=== PATIENT | female | born 1970 | race Caucasian/White ===

== ENCOUNTER → 2021-03-02 09:43 | Outpatient (CLI) | payer MEDICARE, MEDICAID, SELFPAY ==
--- NOTE | 2021-02-27 14:15 | LES_PTH ---
PATIENT: JESSICA TAYLOR LOC: [facility] U#:[id number] AGE/SX: 55/F ROOM: RE03/02/[address]: Dr. Yakelin Escobar MD : [id number] BED: DIS: SPEC #: [id number] RECD: 02/27/21 17:59 STATUS: JULIAN WALKER #: [id number] SEB: 02/27/21 14:[address]: Yakelin Escobar DEPT: SURGICAL PATHOLOGY RECD BY: Ni Shannon ENTERED: 03/02/21 11:09 SP TYPE: Lesion OTHR DR: Dr. Ramy Boo MD Tissues: Skin of face, NOS Procedures: Surgery Specimen Level IV HEADER OPERATION: Punch biopsy PRE-OP DIAGNOSIS: Rule out AK vs malignancy TISSUE SUBMITTED: Right cheek MICROSCOPIC DIAGNOSIS Skin lesion of right cheek, punch biopsy: Suggestive of verrucoid keratosis. Focal parakeratosis and minimal dermal chronic inflammation. No evidence of malignancy. AM:pierce 03/04/2021 COMMENT Case has been reviewed in consultation with Dr. Ly who concurs with the above diagnosis. IDC:SJ MICROSCOPIC DESCRIPTION Slides are reviewed. GROSS DESCRIPTION Received is one container labeled with the patient's name and not further designated. The specimen consists of one irregular fragment of light schroeder soft tissue that measures 0.2 x 0.2 x 0.1 cm. The specimen is totally submitted in one cassette. / AM:pierce 03/02/21 TC:5 CPT: 58817
== END ==
PROVIDERS: PCP Family Medicine; Referring Provider Family Medicine; Visit Provider Family Medicine
DX: L98.9 Disorder of the skin and subcutaneous tissue, unspecified (principal)
CPT/HCPCS: 88305

== ENCOUNTER → 2021-03-10 | Outpatient (CLI) | payer MEDICARE, MEDICAID, SELFPAY ==
[2021-03-14 08:09] LABS: Age Gdln ACOG Testing 30-65 (.)
[2021-03-16 12:29] LABS: HPV APTIMA, High Risk Negative (Negative)
[2021-03-16 12:52] LABS: HPV Reflexed? YES, CHARGE PATIENT
== END | disposition home or self-care (01) ==
LOC: LABSPEC 15:22
PROVIDERS: PCP Family Medicine; Referring Provider Family Medicine; Visit Provider Family Medicine
DX: Z12.4 Encounter for screening for malignant neoplasm of cervix (principal)
CPT/HCPCS: 87624; 88175; G0145

== ENCOUNTER → 2024-08-09 | Outpatient (CLI) | payer MEDICARE, SELFPAY ==
--- NOTE | 2024-08-09 11:55 | BI_ITS ---
MAMMOGRAPHY - BILATERAL SCREENING REASON FOR EXAM: Female, 54 years old. Routine annual screening examination. PERTINENT HISTORY: Grandmother with breast cancer. TECHNIQUE: Digital bilateral breast carlee (3D mammographic acquisition) in the CC and MLO projections. 2-D mediolateral oblique (MLO) and craniocaudad (CC) views of both breasts were obtained. CAD: Full Field Digital Mammography with Computer Added Detection was performed. COMPARISON: Comparison is made with prior outside examination dated September 21, 2016. FINDINGS: Breast Composition: There are scattered areas of fibroglandular density. There are no dominant masses or suspicious calcifications. Stable small benign-appearing bilateral axillary lymph nodes. No other significant abnormalities are identified. There has been no significant change since the prior study. BI/SCRN MAMM (CAD)W/CARLEE BILAT IMPRESSION: Stable bilateral screening mammogram. Yearly follow-up mammogram recommended. (A) ASSESSMENT CATEGORY: BIRADS Category 2: Benign. A letter regarding these results will be sent to the patient by the facility within 30 days. Approximately 10% of breast cancers are not detected by mammography. A normal mammogram should not delay biopsy of a clinically suspicious abnormality. [id number] Electronically Signed: Jovan Palma MD at 13:01 EDT ,
== END | disposition home or self-care (01) ==
LOC: OPBI 11:54
PROVIDERS: PCP Family Medicine; Referring Provider Family Medicine; Visit Provider Family Medicine
DX: Z12.31 Encounter for screening mammogram for malignant neoplasm of breast (principal); Z80.3 Family history of malignant neoplasm of breast
CPT/HCPCS: 77063; 77067

== ENCOUNTER → 2025-08-12 | Outpatient (CLI) | payer MEDICARE, SELFPAY ==
--- NOTE | 2025-08-12 12:37 | BI_ITS ---
EXAM: SCRN MAMM (CAD)W/CARLEE BILAT DATE: 08/12/2025 CLINICAL HISTORY: F, Age 55 y/o , SCREENING TECHNIQUE: Procedure Code: [id number] Modality: MG Procedure: SCRN MAMM (CAD)W/CARLEE BILAT COMPARISON: Prior exam(s) dated 08/09/2024. FINDINGS: TISSUE DENSITY: The breasts are almost entirely fatty. Bilateral Breast Mammographic Findings: A 3 mm nodular masslike density is seen in the retroareolar region, middle 3rd aspect of the right breast. This is best visualized on the carlee images. Further workup is indicated. Stable focal fibroglandular densities and nodular densities are seen elsewhere in the right breast. Benign-appearing round microcalcifications are seen. Stable partially obscured isodense masses are seen in the left breast. Stable nodular densities are seen in the left breast. No significant masses, calcifications or other abnormalities are identified. Benign-appearing round microcalcifications are seen. BI/SCRN MAMM (CAD)W/CARLEE BILAT IMPRESSION: A 3 mm nodular masslike density is seen in the retroareolar region, middle 3rd aspect of the right breast. This is best visualized on the carlee images. Further workup is indicated. Patient should return for an LM view of the right breast as well as spot compre ssion CC and spot compression MLO view of the right breast nodular masslike density. An ultrasound may also be needed. OVERALL FINAL ASSESSMENT BI-RADS 0: INCOMPLETE - NEED ADDITIONAL IMAGING EVALUATION. RECOMMENDATION: Additional Views obtained/call backs Additional Recommendation none A letter with findings and recommendations will be mailed to the patient. Reading Location: [id number]
== END | disposition home or self-care (01) ==
LOC: OPBI 12:35
PROVIDERS: PCP Family Medicine; Referring Provider Family Medicine; Visit Provider Family Medicine
DX: Z12.31 Encounter for screening mammogram for malignant neoplasm of breast (principal)
CPT/HCPCS: 77063; 77067

== ENCOUNTER → 2025-08-16 | Outpatient (CLI) | payer MEDICARE, SELFPAY ==
--- NOTE | 2025-08-16 12:58 | BI_ITS ---
EXAM: DIAG MAMM W/CAD, UNILAT; BREAST LIMITED UNILATERAL; RT BRST UNILAT CARLEE ADD-ON 08/16/2025 CLINICAL HISTORY: F, Age 55 y/o , ABD MAMM R BREAST; ABD MAMM TECHNIQUE: Procedure Code: BIDMWCADU; USBRSTLIMIT; BIRTUNITOMO Modality: MG; US Procedure: DIAG MAMM W/CAD, UNILAT; BREAST LIMITED UNILATERAL; RT BRST UNILAT CARLEE ADD-ON. COMPARISON: Prior exam(s) dated 08/12/2025, 08/09/2024. FINDINGS: MAMMOGRAM: TISSUE DENSITY: There are scattered areas of fibroglandular density. Unilateral Right Breast Mammographic Findings: Follow-up exam performed for the mass in the right breast seen on examination of 08/12/2025. On the present examination, the mass in the retroareolar right breast persist. This has not significantly changed when compared to prior exam of 08/09/2024. ULTRASOUND: Ultrasound performed of the retroareolar right breast demonstrates a small circumscribed oval mass with a probable fatty randolph measuring 0.4 x 0.4 x 0.2 cm cyst may represent a tiny intramammary lymph node. This correlates with the mammographic finding. BI/Rt Brst Unilat Carlee Add-On IMPRESSION: Mass in the retroareolar right breast likely represents a tiny intramammary lym ph node. OVERALL FINAL ASSESSMENT BI-RADS 2: BENIGN RECOMMENDATION: Routine annual follow-up in 1 Year Additional Recommendation none A letter with findings and recommendations will be mailed to the patient. Reading Location: [id number]
--- NOTE | 2025-08-16 12:58 | BI_ITS ---
EXAM: DIAG MAMM W/CAD, UNILAT; BREAST LIMITED UNILATERAL; RT BRST UNILAT CARLEE ADD-ON 08/16/2025 CLINICAL HISTORY: F, Age 55 y/o , ABD MAMM R BREAST; ABD MAMM TECHNIQUE: Procedure Code: BIDMWCADU; USBRSTLIMIT; BIRTUNITOMO Modality: MG; US Procedure: DIAG MAMM W/CAD, UNILAT; BREAST LIMITED UNILATERAL; RT BRST UNILAT CARLEE ADD-ON. COMPARISON: Prior exam(s) dated 08/12/2025, 08/09/2024. FINDINGS: MAMMOGRAM: TISSUE DENSITY: There are scattered areas of fibroglandular density. Unilateral Right Breast Mammographic Findings: Follow-up exam performed for the mass in the right breast seen on examination of 08/12/2025. On the present examination, the mass in the retroareolar right breast persist. This has not significantly changed when compared to prior exam of 08/09/2024. ULTRASOUND: Ultrasound performed of the retroareolar right breast demonstrates a small circumscribed oval mass with a probable fatty randolph measuring 0.4 x 0.4 x 0.2 cm cyst may represent a tiny intramammary lymph node. This correlates with the mammographic finding. BI/DIAG MAMM W/CAD, UNILAT IMPRESSION: Mass in the retroareolar right breast likely represents a tiny intramammary lym ph node. OVERALL FINAL ASSESSMENT BI-RADS 2: BENIGN RECOMMENDATION: Routine annual follow-up in 1 Year Additional Recommendation none A letter with findings and recommendations will be mailed to the patient. Reading Location: [id number]
--- OUTSIDE RECORDS SUMMARY | 2025-08-16 13:12 | XMS RPT_ITS | CCD ---
Author Organization [facility] Care Team Providers Care Ux Engineer Name Role Phone KEIVN NIETO Admitting Unavailable EMILIA, KEVIN T Attending Unavailable EMILIA, KEVIN T Primary Care Unavailable EMILIA, KEVIN T Admitting Unavailable EMILIA, KEVIN T Attending Unavailable EMILIA, KEVIN T Primary Care Unavailable YAKELIN ESCOBAR Consulting Unavailable PROVIDER, UNKNOWN Consulting Unavailable PROVIDER, UNKNOWN Consulting Unavailable EMILIA, KEVIN T Admitting Unavailable EMILIA, KEVIN T Attending Unavailable EMILIA, KEVIN T Primary Care Unavailable EMILIA, KEVIN T Admitting Unavailable EMILIA, KEVIN T Attending Unavailable EMILIA, KEVIN T Primary Care Unavailable YAKELIN ESCOBAR Consulting Unavailable PROVIDER, UNKNOWN Consulting Unavailable PROVIDER, UNKNOWN Consulting Unavailable EMILIA, KEVIN T Admitting Unavailable EMILIA, KVEIN T Attending Unavailable EMILIA, KEVIN T Primary Care Unavailable YAKELIN ESCOBAR Consulting Unavailable PROVIDER, UNKNOWN Consulting Unavailable PROVIDER, UNKNOWN Consulting Unavailable GREGOR HERNANDEZ~[phone], GREGOR KATZ Admitting U neena BUNDY MD~[id number], GREGOR KATZ Attending U neena ESCOBAR MD~[id number], FEDERICO [place]lin Primary Ca re Unavailable YAKELIN ESCOBAR MD Consulting Unavailable YAKELIN ESCOBAR MD Consulting Unavailable GIANNA BUNDY MD Consulting Unavailable GIANNA BUNDY MD Consulting Unavailable WESLEY RENEE Admitting Unavailable WESLEY RENEE Attending Unavailable FEDERICO HERNANDEZ~[phone], FEDERICO [place] Primary Ca re Unavailable WESLEY RENEE Consulting Unavailable WESLEY RENEE Consulting Unavailable YAKELIN ESCOBAR MD Consulting Unavailable YAKELIN ESCOBAR MD Consulting Unavailable AKILA HERNANDEZ~[id number], AKILA Crenshaw Admitting Unavailable AKILA HERNANDEZ~[id number], AKILA Crenshaw Attending Unavailable FEDERICO HERNANDEZ~[id number], FEDERICO [place] Primary Ca re Unavailable RADHA SCRUGGS APRN Consulting Unavailable RADHA SCRUGGS APRN Consulting Unavailable YAKELIN ESCOBAR MD Consulting Unavailable YAKELIN ESCOBAR MD Consulting Unavailable DAKOTA WILBURN MD Consulting Unavailable DAKOTA WILBURN MD Consulting Unavailable Yakelin Escobar Referring Unavailable Yakelin Escobar Primary Care Unavailable Yakelin Escobar Attending Unavailable Yakelin Escobar Referring Unavailable Yakelin Escobar Primary Care Unavailable Yakelin Escobar Attending Unavailable Allergies Allergy Classification Reported Allergen(s) Allergy Type Date of Onset Reaction(s) Facility (1 source) nickel; Translations: [nickel] Drug Allergy [facility] Repository (1 source) tide soap; Translations: [tide soap] Propensity to adverse reactions (disorder) [facility] Repository (1 source) dial soap; Translations: [dial soap] Propensity to adverse reactions (disorder) [facility] Repository Problems Active Problems Problem Classification Problem Date Documented Da te Episodic/Chronic Abdominal pain (1 source) Epigastric pain; Translations: [Epigastric pain] Onset: 08-10-2024 Episodic Malaise and fatigue (1 source) Other fatigue; Translations: [OTHER FATIGUE] Onset: 06-18-2025 Episodic Nutritional deficiencies (3 sources) Vitamin D deficiency, unspecified; Translations: [VITAMIN D DEFICIENCY UNSPECIFIED] Onset: 06-14-2025 Chronic Other aftercare (1 source) Other assisted (current) drug therapy; Translations: [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] Onset: 06-18-2025 Episodic Other lower respiratory disease (1 source) Snoring; Translations: [SNORING] Onset: 06-14-2025 Episodic Other screening for suspected conditions (not mental disorders or infectious disease) (2 sources) Other abnormal and inconclusive findings on diagnostic imaging of breast; Translations: [Encounter for screening mammogram for malignant neoplasm of breast] Onset: 08-12-2025 Episodic Residual codes; unclassified (2 sources) Obstructive sleep apnea (adult) (pediatric); Translations: [OBSTRUCTIVE SLEEP APNEA] Onset: 06-10-2025 Chronic Residual codes; unclassified (1 source) Hypersomnia, unspecified; Translations: [HYPERSOMNIA UNSPECIFIED] Onset: 06-14-2025 Chronic Past or Other Problems Problem Classification Problem Date Documented Da te Episodic/Chronic Biliary tract disease (3 sources) Cholecystitis, unspecified; Translations: [Cholecystitis, unspecified] Onset: 02-10-2024 Episodic Other gastrointestinal disorders (3 sources) Change in bowel habit; Translations: [CHANGE IN BOWEL HABIT] Onset: 03-22-2025 Episodic Results Test Name Value Interpretation Reference Range Facility SCRN MAMM (CAD)W/CARLEE BILATo n 08-12-2025 SCRN MAMM (CAD)W/CARLEE BILAT [facility] Imaging Services [address], [place] [id number] SCRN MAMM (CAD)W/CARLEE BILAT MR#: [id number] Acct: [id number] Name: JESSICA TAYLOR Rep #: [id number] : 1970 F 55 From: Jud Hayes PCP: Dr. Yakelin Escobar MD Status: [facility] Study: SCRN MAMM (CAD)W/CARLEE BILAT Date of Exam: 07/31 01/22 Exam# [id number] Ordering Dr: Yakelin Escobar MD EXAM: SCRN MAMM (CAD)W/CARLEE BILAT DATE: 08/12/2025 CLINICAL HISTORY: F, Age 55 y/o , SCREENING TECHNIQUE: Procedure Code: BISMWCADBTOM Modality: MG Procedure: SCRN MAMM (CAD)W/CARLEE BILAT COMPARISON: Prior exam(s) dated 08/09/2024. FINDINGS: TISSUE DENSITY: The breasts are almost entirely fatty. Bilateral Breast Mammographic Findings: A 3 mm nodular masslike density is seen in the retroareolar region, middle 3rd aspect of the right breast. This is best visualized on the carlee images. Further workup is indicated. Stable focal fibroglandular densities and nodular densities are seen elsewhere in the right breast. Benign-appearing round microcalcifications are seen. Stable partially obscured isodense masses are seen in the left breast. Stable nodular densities are seen in the left breast. No significant masses, calcifications or other abnormalities are identified. Benign-appearing round microcalcifications are seen. BI/SCRN MAMM (CAD)W/CARLEE BILAT IMPRESSION: A 3 mm nodular masslike density is seen in the retroareolar region, middle 3rd aspect of the right breast. This is best visualized on the carlee images. Further workup is indicated. Patient should return for an LM view of the right breast as well as spot compression CC and spot compression MLO view of the right breast nodular masslike density. An ultrasound may also be needed. OVERALL FINAL ASSESSMENT BI-RADS 0: INCOMPLETE - NEED ADDITIONAL IMAGING EVALUATION. RECOMMENDATION: Additional Views obtained/call backs Additional Recommendation none A letter with findings and recommendations will be mailed to the patient. Reading Location: [id number] CC: Dr. Yakelin Escobar MD [employer] Sales: Signed Normal [facility] 25-hydroxyvitamin D [Mass/Vo l]on 06-14-2025 25-hydroxyvitamin D3 [Mass/Vol] 41.7 ng/mL Normal 30.0-100.0 [facility] Comment on above: Performed By: #### 6 2292-8, 26627-2, 95357-1 #### [facility] [address] [place] [address] Instrumental Musician - Josey RAI [id number] HVITD VITAMIN D INTERPRETATION VITAMIN D STATUS RANGE -- DEFICIENCY <20 ng/mL INSUFFICIENCY 20-30 ng/mL SUFFICIENCY 30-100 ng/mL TOXICITY >100 ng/mL Normal [facility] Comment on above: Performed By: #### 6 2292-8, 22055-8, 98486-0 #### [facility] [address] [place] [address] Instrumental Musician - Josey RAI [id number] CBC W Auto Differential pane l (Bld)on 06-14-2025 Basophils (Bld) [#/Vol] 0.07 10*3/uL Normal <=0.70 [facility] Comment on above: Performed By: #### 5 7021-8 #### [place] [address] [place] [address] Instrumental Musician - Josey Chua CLIA [id number] Basophils/100 WBC (Bld) 1.0 % Normal <=2.0 [facility] Comment on above: Performed By: #### 5 7021-8 #### [address] [place] [address] Instrumental Musician - Josey Chua CLIA [id number] Eosinophils (Bld) [#/Vol] 0.32 10*3/uL Normal <=0.70 [facility] Comment on above: Performed By: #### 5 7021-8 #### [address] [place] [address] Instrumental Musician - Josey Chua CLIA [id number] Eosinophils/100 WBC (Bld) 4.4 % Normal <=10.0 [facility] Comment on above: Performed By: #### 5 7021-8 #### [address] [place] [address] Instrumental Musician - Josey CAMERONIA [id number] Erythrocyte distribution width (RBC) [Entitic vol] 40.8 fL Normal 36.4-46.3 [facility] Comment on above: Performed By: #### 5 7021-8 #### [address] [place] [address] Instrumental Musician - Josey Chua CLIA [id number] Hematocrit (Bld) [Volume fraction] 39.3 % Normal 37.0-47.0 [facility] Comment on above: Performed By: #### 5 7021-8 #### [address] [place] [address] Instrumental Musician - Josey CAMERONIA [id number] Hemoglobin (Bld) [Mass/Vol] 13.5 g/dL Normal 12.0-16.0 [facility] Comment on above: Performed By: #### 5 7021-8 #### [facility] [address] [facility]. [place] [address] Instrumental Musician - Josey Chua CLIA [id number] Immature granulocytes (Bld) [#/Vol] 0.02 10*3/uL Normal <=0.10 [facility] Comment on above: Performed By: #### 5 7021-8 #### [address] [place] [address] Instrumental Musician - Josey Chua CLIA [id number] Immature granulocytes/100 WBC (Bld) 0.30 % Normal <=1.50 [facility] Comment on above: Performed By: #### 5 7021-8 #### [address] [place] [address] Instrumental Musician - Josey Chua CLIA [id number] Lymphocytes (Bld) [#/Vol] 2.31 10*3/uL Normal 1.20-3.40 [facility] Comment on above: Performed By: #### 5 7021-8 #### [address] [place] [address] Instrumental Musician - Josey Chua CLIA [id number] Lymphocytes/100 WBC (Bld) 32.0 % Normal 20.0-40.0 [facility] Comment on above: Performed By: #### 5 7021-8 #### [address] [place] [address] Instrumental Musician - Josey Chua CLIA [id number] MCH (RBC) [Entitic mass] 29.9 pg Normal 27.0-31.0 [facility] Comment on above: Performed By: #### 5 7021-8 #### [address] [place] [address] Instrumental Musician - Josey Chua CLIA [id number] MCHC (RBC) [Mass/Vol] 34.4 g/dL Normal 32.0-36.0 [facility] Comment on above: Performed By: #### 5 7021-8 #### [facility] [address] [place] [address] Instrumental Musician - Josey CAMERONIA [id number] MCV (RBC) [Entitic vol] 86.9 fL Normal 80.0-100.0 [facility] Comment on above: Performed By: #### 5 7021-8 #### [place] [address] [place] [address] Instrumental Musician - Josey Chua CLIA [id number] Monocytes (Bld) [#/Vol] 0.48 10*3/uL Normal 0.10-0.60 [facility] Comment on above: Performed By: #### 5 7021-8 #### [place] [address] [place] [address] Instrumental Musician - Josey Chua CLIA [id number] Monocytes/100 WBC (Bld) 6.7 % Normal <=8.0 [facility] Comment on above: Performed By: #### 5 7021-8 #### [place] [address] [place] [address] Instrumental Musician - Josey Chua CLIA [id number] Neutrophils (Bld) [#/Vol] 4.01 10*3/uL Normal 1.40-6.50 [facility] Comment on above: Performed By: #### 5 7021-8 #### [place] [address] [place] [address] Instrumental Musician - Josey Chua CLIA [id number] Neutrophils/100 WBC (Bld) 55.6 % Normal 50.0-70.0 [facility] Comment on above: Performed By: #### 5 7021-8 #### [address] [place] [address] Instrumental Musician - Josey Chua CLIA [id number] Nucleated RBC (Bld) [#/Vol] 0.00 10*3/uL Normal <=0.10 [facility] Comment on above: Performed By: #### 5 7021-8 #### [place] [address] [place] [address] Instrumental Musician - Josey RAI [id number] Platelet mean volume (Bld) [Entitic vol] 11.6 fL Normal 9.0-13.0 [facility] Comment on above: Performed By: #### 5 7021-8 #### [facility] [address] [place] [address] Instrumental Musician - Josey RAI [id number] Platelets (Bld) [#/Vol] 234 10*3/uL Normal 130-400 [facility] Comment on above: Performed By: #### 5 7021-8 #### [facility] [address] [place] [address] Instrumental Musician - Josey RAI [id number] RBC (Bld) [#/Vol] 4.52 10*6/uL Normal 4.00-6.30 [facility] Comment on above: Performed By: #### 5 7021-8 #### [place] [address] [place] [address] Instrumental Musician - Josey RAI [id number] WBC (Bld) [#/Vol] 7.21 10*3/uL Normal 4.80-10.80 [facility] Comment on above: Performed By: #### 5 7021-8 #### [place] [address] [place] [address] Instrumental Musician - Josey RAI [id number] Comprehensive metabolic 2000 panelon 06-14-2025 Albumin [Mass/Vol] 3.7 g/dL Normal 3.4-5.0 [facility] Comment on above: Performed By: #### 6 2292-8, 29649-3, 11417-3 #### [facility] [address] [place] [address] Instrumental Musician - Josey RAI [id number] ALP [Catalytic activity/Vol] 141 U/L High 50-136 [facility] Comment on above: Performed By: #### 6 2292-8, 36703-4, 67257-8 #### [facility] [address] [place] [address] Instrumental Musician - Josey Chua CLIA [id number] ALT [Catalytic activity/Vol] 32 U/L Normal 14-59 [facility] Comment on above: Performed By: #### 6 2292-8, 80170-5, 68797-5 #### [facility] [address] [place] [address] Instrumental Musician - Josey Chua CLIA [id number] Anion gap [Moles/Vol] 11.0 mmol/L Normal <=15.0 [facility] Comment on above: Performed By: #### 6 2292-8, 06056-0, 69376-6 #### [facility] [address] [place] [address] Instrumental Musician - Josey CAMERONIA [id number] AST [Catalytic activity/Vol] 22 U/L Normal 15-37 [facility] Comment on above: Performed By: #### 6 2292-8, 36038-6, 33209-7 #### [facility] [address] [place] [address] Instrumental Musician - Josey Chua CLIA [id number] Bilirubin [Mass/Vol] 0.6 mg/dL Normal 0.2-1.0 [facility] Comment on above: Performed By: #### 6 2292-8, 75980-2, 10970-5 #### [facility] [address] [place] [address] Instrumental Musician - Josey Chua CLIA [id number] Calcium [Mass/Vol] 9.4 mg/dL Normal 8.5-10.1 [facility] Comment on above: Performed By: #### 6 2292-8, 88827-8, 50452-6 #### [facility] [address] [place] [address] Instrumental Musician - Josey CAMERONIA [id number] Chloride [Moles/Vol] 107 mmol/L Normal 98-107 [facility] Comment on above: Performed By: #### 6 2292-8, 96823-3, 56578-7 #### [facility] [address] [place] [address] Instrumental Musician - Josey RAI [id number] CO2 [Moles/Vol] 27 mmol/L Normal 21-32 [facility] Comment on above: Performed By: #### 6 2292-8, 81148-7, 67449-8 #### [facility] [address] [place] [address] Instrumental Musician - Josey RAI [id number] Creatinine [Mass/Vol] 0.78 mg/dL Normal 0.51-0.95 [facility] Comment on above: Performed By: #### 6 2292-8, 21166-8, 88164-1 #### [facility] [address] [place] [address] Instrumental Musician - Josey RAI [id number] GFR/1.73 sq M.predicted MDRD (S/P/Bld) [Vol rate/Area] mL/min/{1.73_m2} Normal >=60 [facility] Comment on above: Performed By: #### 6 2292-8, 43243-4, 95915-9 #### [facility] [address] [place] [address] Instrumental Musician - Josey RAI [id number] Glucose [Mass/Vol] 85 mg/dL Normal 74-106 [facility] Comment on above: Performed By: #### 6 2292-8, 46558-8, 49655-7 #### [facility] [address] [place] [address] Instrumental Musician - Josey RAI [id number] HGFR GLOMERULAR FILTRATIO N RATE INTERPRETATION~The eGFR is calculated using the MDRD equation.~This equation has been validated in patients with chronic kidney disease;~however, it underestimates the GFR in healthy patients with GFR's over 60 mL/min.~The equation is not valid in children under the age of 18.~NOTE: Criteria for Chronic Kidney Disease:~ ~1. Kidney damage for at least three months, as defined~by structural or functional abnormalities of the kidney,~with or without decreased glomerular filtration rate, manifested by either:~* Pathological abnormalities or~* Markers of Kidney damage, including abnormalities in~the composition of the blood or urine or abnormalities in imaging tests.~ ~2. GFR <60 mL/min/1.73 m squared for at least three months, with or without kidney damage.~ Normal [facility] Comment on above: Performed By: #### 6 2292-8, 95524-5, 20467-3 #### [facility] [address] [place] [address] Instrumental Musician - Josey RAI [id number] Potassium [Moles/Vol] 4.3 mmol/L Normal 3.5-5.1 [facility] Comment on above: Performed By: #### 6 2292-8, 94099-2, 67521-5 #### [facility] [address] [place] [address] Instrumental Musician - Josey RAI [id number] Protein [Mass/Vol] 7.0 g/dL Normal 6.4-8.2 [facility] Comment on above: Performed By: #### 6 2-8, , 84178-8 #### [facility] [address] [place] [address] Instrumental Musician - Josey RAI [id number] Sodium [Moles/Vol] 145 mmol/L Normal 136-145 [facility] Comment on above: Performed By: #### 6 2292-8, 52453-3, 38755-0 #### [facility] [address] [place] [address] Instrumental Musician - Josey RAI [id number] Urea nitrogen [Mass/Vol] 13 mg/dL Normal 7-17 [facility] Comment on above: Performed By: #### 6 2292-8, 00388-9, 84286-4 #### [facility] [address] [place] [address] Instrumental Musician - Josey RAI [id number] HbA1c Calc (Bld) [Mass fract ion]on 06-14-2025 Average glucose Estimated from glycated hemoglobin (Bld) [Mass/Vol] 108 mg/dL Normal 68-125 [facility] Comment on above: Performed By: #### 1 7855-8 #### [facility] [address] [place] [address] Instrumental Musician - Josey RAI [id number] HA1C A1C INTERPRETATION % A1c (NGSP) Interpretation <5.7 Non-Diabetic Range 5.7 - 6.4 Prediabetic >6.5 Action Suggested The eAG (estimated average glucose) is an estimation of one?s average blood glucose level, calculated based on A1C test results, reported using the same units (mg/dL) seen on blood glucose meters. Normal [facility] Comment on above: Performed By: #### 1 7855-8 #### [facility] [address] [place] [address] Instrumental Musician - Josey RAI [id number] HbA1c (Bld) [Mass fraction] 5.4 %A1C Normal 4.2-6.3 [facility] Comment on above: Performed By: #### 1 7855-8 #### [facility] [address] [place] [address] Instrumental Musician - Josey RAI [id number] Lipid panel with direct LDLo n 06-14-2025 Cholesterol [Mass/Vol] 149 mg/dL Normal <=200 [facility] Comment on above: Performed By: #### 6 2292-8, 19785-5, 39883-2 #### [facility] [address] [place] [address] Instrumental Musician - Josey RAI [id number] Cholesterol in HDL [Mass/Vol] 40 mg/dL Normal 40-59 [facility] Comment on above: Performed By: #### 6 2292-8, 37932-5, 43237-7 #### [facility] [address] [place] [address] Instrumental Musician - Josey RAI [id number] Cholesterol in LDL [Mass/Vol] 79 mg/dL Normal 5-100 [facility] Comment on above: Performed By: #### 6 2292-8, 17225-6, 29497-9 #### [facility] [address] [place] [address] Instrumental Musician - Josey RAI [id number] Cholesterol in LDL/Cholesterol in HDL [Mass ratio] 2.0 {ratio} Normal [facility] Comment on above: Performed By: #### 6 2292-8, 09921-0, 17799-2 #### [facility] [address] [place] [address] Instrumental Musician - Josey RAI [id number] Cholesterol.total/Ch olesterol in HDL [Mass ratio] 3.7 {ratio} Normal [facility] Comment on above: Performed By: #### 6 2292-8, 58467-4, 31193-0 #### [facility] [address] [place] [address] Instrumental Musician - Josey RAI [id number] HCHOL CHOLESTEROL INTERPRETATION Desirable <200 Borderline High 200-239 High >240 Normal [facility] Comment on above: Performed By: #### 6 2292-8, 40305-6, 32998-8 #### [facility] [address] [place] [address] Instrumental Musician - Josey RAI [id number] HLDL LDL INTERPRETATION Desirable <100 Near Optimal 100-129 Borderline High 130-159 High 160-190 Very High >190 Normal [facility] Comment on above: Performed By: #### 6 2292-8, 63593-0, 85862-3 #### [facility] [address] [place] [address] Instrumental Musician - Josey RAI [id number] HLIPID ATEROSCLEROSIS RISK FACTORS FOR LDL, HDL, AND CHOLESTEROL RISK FACTOR SEX LDL/HDL CHOL/HDL ------- 1/2 Average M 1.00 3.43 F 1.47 3.27 Average M 3.55 4.97 F 3.22 4.44 2X Average M 6.25 9.55 F 5.03 7.05 3X Average M 7.99 23.39 F 6.14 11.04 Normal [facility] Comment on above: Performed By: #### 6 2292-8, 99795-9, 84526-2 #### [facility] [address] [place] [address] [facility] [id number] HTRIG TRIGLYCERIDES INTERPRETATION Normal <150 Borderline High 150-199 High 200-499 Very High >500 Normal [facility] Comment on above: Performed By: #### 6 2292-8, 20232-1, 17311-2 #### [facility] [address] [facility] [place] [address] Instrumental Musician [facility] [id number] Triglyceride [Mass/Vol] 147 mg/dL Normal <=150 [facility] Comment on above: Performed By: #### 6 2292-8, 20007-4, 11366-8 #### [facility] [address] [place] [address] Instrumental Musician [facility] [id number] THYROID CASCADE PROFILEon TSH Qn 2.902 uIU/mL Normal 0.358-3.740 [facility] Comment on above: Performed By: #### T HYROID #### [facility] [address] [place] [address] Instrumental Musician [facility] [id number] STOOL CALPROTECTINon 025 Calprotectin, Fecal 70 ug/g Normal 0-120 [facility] Comment on above: Result Comment: Conc entration Interpretation Follow-Up < 5 - 50 ug/g Normal None >50 -120 ug/g Borderline Re-evaluate in 4-6 weeks >120 ug/g Abnormal Repeat as clinically indicated Performed By: #### S CALPRO #### Performed for [facility] [address] [place] [address] STOOL ELASTASE PANCREATICon 03-25-2025 Pancreatic Elastase, Fecal >800 Normal >200 [facility] Comment on above: Result Comment: German[place] re Pancreatic Insufficiency: <100 Moderate Pancreatic Insufficiency: 100 - 200 Normal: >200 Performed By: #### S CHAITANYA #### Performed for [facility] [address] [place] [address] GI PANELon 03-22-2025 ADENOVIRUS Not detected Normal NOT DETECTED [facility] Comment on above: Performed By: #### G Ronald TAVARES #### [place] [address] Instrumental Musician - [place] [address] ASTROVIRUS Not detected Normal NOT DETECTED [facility] Comment on above: Performed By: #### Bibi TAVARES #### [address] [place] [address] Instrumental Musician - [place] [id number] CAMPYLOBACTER Not detected Normal NOT DETECTED [facility] Comment on above: Performed By: #### Bibi TAVARES #### [address] [place] [address] Instrumental Musician - [place] [id number] CRYPTOSPORIDIUM Not detected Normal NOT DETECTED [facility] Comment on above: Performed By: #### Bibi TAVARES #### [address] [place] [address] Instrumental Musician - [place] [id number] CYCLOSPORA Not detected Normal NOT DETECTED [facility] Comment on above: Performed By: #### Bibi TAVARES #### [address] [place] [address] Instrumental Musician - [facility] [id number] E.COLI(EAEC) Not detected Normal NOT DETECTED [facility] Comment on above: Performed By: #### Bibi TAVARES #### [address] [place] [address] Instrumental Musician - [facility] CLIA [id number] E.COLI(EPEC) Not detected Normal NOT DETECTED [facility] Comment on above: Performed By: #### G Ronald TAVARES #### [facility] [address] [place] [address] Instrumental Musician - [facility] CLIA [id number] E.COLI(ETEC) Not detected Normal NOT DETECTED [facility] Comment on above: Performed By: #### G Ronald TAVARES #### [facility] [address] [place] [address] [id number] E.COLI(STEC) Not detected Normal NOT DETECTED [facility] Comment on above: Performed By: #### G Ronald TAVARES #### [facility] [address] [place] [address] Instrumental Musician - [facility] CLIA [id number] NOT APPLICABLE Normal NOT DETECTED [facility] Comment on above: Performed By: #### G Ronald TAVARES #### [facility] [address] [place] [address] [facility] [id number] ENT HISTOLYTICA Not detected Normal NOT DETECTED [facility] Comment on above: Performed By: #### G Ronald TAVARES #### [facility] [address] [place] [address] Instrumental Musician - [facility] CLIA [id number] GIARDIA LAMBLIA Not detected Normal NOT DETECTED [facility] Comment on above: Performed By: #### G Ronald TAVARES #### [facility] [address] [place] [address] [facility] [id number] HPCR TESTING PERFORMED BY PCR METHODOLOGY Normal [facility] Comment on above: Performed By: #### G Ronald TAVARES #### [facility] [address] [place] [address] [facility] [id number] HPCRB TEST PERFORMED USING BIOFIRE Normal [facility] Comment on above: Performed By: #### Bibi TAVARES #### [facility] [address] [place] [address] [facility] [id number] NOROVIRUS GI/GII Not detected Normal NOT DETECTED [facility] Comment on above: Performed By: #### Bibi TAVARES #### [address] [place] [address] [facility] [id number] Plesiomonas shigello Not detected Normal NOT DETECTED [facility] Comment on above: Performed By: #### Bibi TAVARES #### [place] [address] [facility] [id number] ROTAVIRUS A Not detected Normal NOT DETECTED [facility] Comment on above: Performed By: #### Bibi TAVARES #### [place] [address] [facility] [id number] SALMONELLA Not detected Normal NOT DETECTED [facility] Comment on above: Performed By: #### Bibi TAVARES #### [place] [address] [facility] [id number] SAPOVIRUS Not detected Normal NOT DETECTED [facility] Comment on above: Performed By: #### Bibi TAVARES #### [place] [address] [facility] [id number] SHIGELLA Not detected Normal NOT DETECTED [facility] Comment on above: Performed By: #### Bibi TAVARES #### [place] [address] [facility] [id number] VIBRIO Not detected Normal NOT DETECTED [facility] Comment on above: Performed By: #### Bibi TAVARES #### [address] [address] Instrumental Musician - [facility] [id number] VIBRIO CHOLERAE Not detected Normal NOT DETECTED [facility] Comment on above: Performed By: #### G I KENYE #### [place] [address] Instrumental Musician - [facility] [id number] YERSINIA enterocolit Not detected Normal NOT DETECTED [facility] Comment on above: Performed By: #### G I KENYE #### [place] [address] Instrumental Musician - [facility] [id number] TSH DL <= 0.05 mIU/L [facility] TSH Qn 1.816 uIU/mL Normal 0.358-3.740 [facility] Comment on above: Performed By: #### 1 1579-0 #### [place] [address] Instrumental Musician - [facility] [id number] Final Surgical Pathology Rep [facility] 02-17-2024 Final Surgical Pathology Report . Pathology Reports Accession: Collected Date/Time: Received Date/Time: Pathologist: [id number] 02/15/2024 14:15 EDT 02/16/2024 08:05 EDT HIGINIO HERNANDES MD Final Surgical Pathology Report DIAGNOSIS: GALLBLADDER: - MARKED CHRONIC CHOLECYSTITIS COMMENT: [id number] CLINICAL INFORMATION: Acquired absence of other specified parts of digestive tract SPECIMEN: A GALLBLADDER GROSS DESCRIPTION: All parts labelled with patient name and [id number] Received in formalin labelled "gallbladder" Dimensions - 6.5 x 3.7 x 2.6 cm Cystic duct/pericystic duct lymph node - no lymph node identified Serosal surface - is smooth and schroeder-pink Luminal contents - schroeder-green bile. No stones identified Mucosal surface - is velvety schroeder-green Wall thickness - 0.1 to 0.4 cm RS-1 Emperatriz Haley, Grossing Conditioning Room Worker/ Dr. Higinio Hernandes, Pathologist Dictated by Emperatriz Haley MICROSCOPIC DESCRIPTION: The microscopic examination is performed, except in the case of Gross Only. Electronically Signed by Pathology Report verified by [facility] HIGINIO HERNANDES Sign out Date: 02/17/2024 12:52 Performing Lab: [facility], [address] [place] [address] Pathology Dept Disclaimer If ancillary studies were utilized, the following Laboratory Developed Test (LDT) disclaimer will apply: Under CLIA requirements, [facility] is qualified to perform high complexity testing. For all ancillary stains, positive and negative controls stain appropriately. Performance characteristics of immunohistochemical and chromogenic in-situ hybridization tests have been determined by [facility]. These tests are used for clinical purposes, They should not be regarded as investigational or for research. Normal [facility] (ID) Final Surgical Pathology Rep [facility] 09-07-2023 Final Surgical Pathology Report . Pathology Reports Accession: Collected Date/Time: Received Date/Time: Pathologist: [id number] 09/05/2023 10:43 EST 09/06/2023 14:09 HERB GUERRERO MD Final Surgical Pathology Report DIAGNOSIS: RECTOSIGMOID POLYP: - TUBULAR ADENOMA COMMENT: [facility] # [id number] CLINICAL INFORMATION: SCREENING SPECIMEN: A RECTOSIGMOID POLYP GROSS DESCRIPTION: All parts labelled with patient name and [id number] Received in formalin labeled "rectosigmoid" is 1 schroeder tissue fragment measuring 0.3 cm. TS-1 Emperatriz Haley, Grossing Conditioning Room Worker/ Dr. Higinio Hernandes, Pathologist Dictated by Emperatriz Haley MICROSCOPIC DESCRIPTION: The microscopic examination is performed, except in the case of Gross Only. Electronically Signed by Pathology Report verified by [facility] HERB GIBSON Sign out Date: 09/07/2023 11:44 Performing Lab: [facility], [address] [place] [address] [facility] Pathology Dept Disclaimer If ancillary studies were utilized, the following Laboratory Developed Test (LDT) disclaimer will apply: Under CLIA requirements, [facility] is qualified to perform high complexity testing. For all ancillary stains, positive and negative controls stain appropriately. Performance characteristics of immunohistochemical and chromogenic in-situ hybridization tests have been determined by [facility]. These tests are used for clinical purposes, They should not be regarded as investigational or for research. Normal [facility] ([place]) NM HIDA SCANon 08-24-2023 NM HIDA SCAN [place] [address] [place], [place] [address] Patient: JESSICA TAYLOR Phone#: : [phone] Age: 53 Gender: F Pt. Type: Out Account: [id number] [facility] Ordering: KEVIN NIETO Exam Date: 08/24/2023/11:47 Family Phys: YAKELIN ESCOBAR Charge Code: 711346 Physician: [place] Order #: [id number] Dose#: PROCEDURE: HIDA SCAN COMPARISON: None. INDICATIONS: Abdominal pain TECHNIQUE: Informed consent was obtained. A routine radionuclide hepatobiliary scan was performed after intravenous injection of 7.2 mCi Tc Choletec with sequential acquisitions every 5 minutes for one hour. Then, a repeat hepatobiliary scan with gallbladder ejection fraction analysis was performed after a oral administration of 8 ounces ensure plus. Biliary imaging was again performed with sequential imaging performed immediately and at 60 minutes, followed by computer quantitative ejection fraction analysis. PHARMACEUTICAL(S): Tc-99m PITO derivative (see dose listed above). Cholecystokinin (Kinevac ) (see dose listed above). FINDINGS: BILIARY DUCTS: Normal radioisotopic biliary excretion. GALLBLADDER: Normal with no evidence of cystic duct obstruction. INTESTINE: Normal with no evidence of common biliary ductal obstruction. EJECTION FRACTION: 61 % at 60 minutes. (Normal EF > 35%). OTHER: Negative. CONCLUSION: 1. Normal HIDA scan. Ejection fraction is 61%. Dictated by: Cassi Paiz MD on 08/24/2023 at 14:21 Approved by: Cassi Paiz MD on 08/24/2023 at 14:23 Normal [facility] Encounters Encounter Date Encounter Type Care Provider Facility Start: 08-16-2025 [facility] Facility: [facility] Start: 08-12-2025 [facility] Facility: [facility] Start: 06-14-2025 End: 06-14-2025 ambulatory WESLEY VÍCTOR Facility:[facility] Start: 06-10-2025 ambulatory AKILA WILBURN MD~[id number] Facility:[facility] Start: 03-22-2025 End: 03-22-2025 ambulatory GREGOR BUNDY MD~[id number] Facility:[facility] Start: 08-10-2024 ambulatory KEVIN Gomez [facility] Start: 02-15-2024 End: 02-15-2024 ambulatory KEVIN Carr EMILIAZORAIDA [facility] Start: 02-10-2024 End: 02-10-2024 ambulatory KEVIN Lilly EMILIAZORAIDA [facility] Start: 09-05-2023 End: 09-05-2023 ambulatory KENT Lilly EMILIAZORAIDA [facility] Start: 08-24-2023 End: 08-24-2023 ambulatory [facility] Payers Date Payer Category Payer Self-pay 2025 Medicare [id number] 2016 Medicaid [id number] 1970 Unknown [id number] 2.16.8 [id number] 1970 Unknown [id number] 2.16.8 [id number] 1970 Unknown [id number] 2.16.8 [id number] 1970 Unknown [id number] 2.16.8 [id number] 1970 Unknown [id number] 2.16.8 40.1.865199.3.579.2.651 1970 Unknown [id number] 2.16.8 [id number] 1970 Unknown [id number] 2.16.8 40.1.868864.3.579.2.419 1970 Unknown [id number] 2.16.8 40.1.172848.3.579.2.419 Medicare [id number] Unknown [id number] 2.16.8 [id number] Unknown [id number] 2.16.8 [id number] Summary Purpose Family History No Family History Records FoundNo Family History Records FoundNo Family History Records FoundNo Family History Records Found Advance Directives No Advanced Directives Records FoundNo Advanced Directives Records FoundNo Advanced Directives Records FoundNo Advanced Directives Records Found Additional Source Comments INFORMATION SOURCE (unrecogn ized section and content) DATE CREATED AUTHOR 02/19/2024 [facility] ([place]) DATE CREATED AUTHOR AUTHOR'S ORGANIZ ATION 08/12/2024 [facility] DATE CREATED AUTHOR AUTHOR'S ORGANIZ ATION 08/05/2025 [facility] DATE CREATED AUTHOR AUTHOR'S ORGANIZ ATION 08/16/2025 [facility] FOR RECORDS PERTAINING TO PATIENTS WHO ARE OR HAVE BEEN ENROLLED IN A CHEMICAL DEPENDENCY/SUBSTANCEABUSE PROGRAM, SOME INFORMATION MAY BE OMITTED. This clinical summary was aggregated from multiple sources. Caution should be exercised in using it in the provision of clinical care. This summary normalizes information from multiple sources, and as a consequence, information in this document may materially change the coding, format and clinical context of patient data. In addition, data may be omitted in some cases. CLINICAL DECISIONS SHOULD BE BASED ON THE PRIMARY CLINICAL RECORDS. [employer] [facility]. provides no warranty or guarantee of the accuracy or completeness of information in this document.
== END | disposition home or self-care (01) ==
LOC: OPBI 12:52
PROVIDERS: PCP Family Medicine; Referring Provider Family Medicine; Visit Provider Family Medicine
DX: N63.41 Unspecified lump in right breast, subareolar (principal); R92.30 Dense breasts, unspecified; R92.8 Other abnormal and inconclusive findings on diagnostic imaging of breast
CPT/HCPCS: 76642; 77061; 77065; G0279